=== PATIENT | female | born 1985 | race Two or more races ===

== ENCOUNTER → 2019-04-02 17:20 | Outpatient (CLI) | payer OTHER | END | disposition home or self-care (01) | LOC: LAB 17:20 | DX: J11.1 Influenza due to unidentified influenza virus with other respiratory manifestations (principal) ==

== ENCOUNTER 2020-11-28 09:14 | Outpatient (CLI) | payer OTHER | END 2020-11-28 09:23 | disposition home or self-care (01) | LOC: SONOGRAMA 09:14 → MAMO-SONO 09:45 | PROVIDERS: ATTEND Obstetrics & Gynecology | DX: E03.8 Other specified hypothyroidism (principal) ==

== ENCOUNTER 2020-12-02 11:27 | Outpatient (CLI) | payer OTHER | END 2020-12-02 11:29 | disposition home or self-care (01) | LOC: LAB 11:27 | PROVIDERS: ATTEND Obstetrics & Gynecology | DX: E03.8 Other specified hypothyroidism (principal); E16.2 Hypoglycemia, unspecified; N39.0 Urinary tract infection, site not specified; E78.2 Mixed hyperlipidemia; E56.9 Vitamin deficiency, unspecified; E55.9 Vitamin D deficiency, unspecified; R97.1 Elevated cancer antigen 125 [CA 125]; R53.1 Weakness; E66.01 Morbid (severe) obesity due to excess calories; Z11.3 Encounter for screening for infections with a predominantly sexual mode of transmission ==

== ENCOUNTER 2022-12-20 12:10 | Outpatient (CLI) | payer OTHER | END 2022-12-20 13:59 | disposition home or self-care (01) | LOC: SONOGRAMA 12:10 | DX: E04.8 Other specified nontoxic goiter (principal); R10.2 Pelvic and perineal pain; D25.9 Leiomyoma of uterus, unspecified ==